=== PATIENT | male | born 1965 | race Caucasian/White ===

== ENCOUNTER 2022-01-02 20:38 | Emergency (ER) | payer OTHER ==
[~2022-01-02] VITALS: Ht 175.3 cm; Wt 72.6 kg
[2022-01-02 20:43] VITALS: BP_SYST 119
--- NOTE | 2022-01-02 20:45 | NUR ---
Pt BIBA from home with c/o of lightheadedness after being on inversion table upside down for 20 mins. Pt states he did not pass out, LOC. Per he was "in and out for 1 minute". Pt A&O X4, following commands. Pt denies CP, N/V.
--- NOTE | 2022-01-02 20:50 | NUR ---
Patient to ER bed 05 to gown for evaluation. Side rails up. Report given to Antony TOBAR.
--- NOTE | 2022-01-02 21:24 | NUR ---
BRIAN Bender at bedside examining patient.
[2022-01-02 22:00] LABS: BASOPHILS # (AUTO) 0.1 K/uL (0.0-0.2); BASOPHILS % (AUTO) 0.9 % (0.0-2.0); EOSINOPHILS # (AUTO) 0.8 K/uL (0.0-0.4); EOSINOPHILS % (AUTO) 7.3 % (0.0-4.0); HEMATOCRIT 41.6 % (36-54); LYMPHOCYTES # (AUTO) 1.7 K/uL (1.0-5.5); LYMPHOCYTES % (AUTO) 14.2 % (20.5-51.5); MEAN CORPUSCULAR VOLUME 87 fL (79.0-98.0); MONOCYTES # (AUTO) 0.8 K/uL (0.0-1.0); MONOCYTES % (AUTO) 7.2 % (1.7-9.3); NEUTROPHILS # (AUTO) 8.2 K/uL (1.8-7.7); NEUTROPHILS % (AUTO) 70.4 % (40.0-70.0); PLATELET COUNT (AUTO) 214 K/uL (130-430); RED BLOOD CELL COUNT(AUTO) 4.79 MIL/uL (4.2-6.2); RED CELL DISTRIBUTION WIDTH 12.9 % (9.0-15.0); WHITE BLOOD COUNT (AUTO) 11.7 K/uL (4.8-10.8)
[2022-01-02 22:50] LABS: ANION GAP 10 (5-15); CALCIUM 9.2 mg/dL (8.4-11.0); CHLORIDE 105 mmol/L (98-107); CREATININE 1.11 mg/dL (0.55-1.30); GLUCOSE 127 mg/dL (70-99); POTASSIUM 3.4 mmol/L (3.5-5.1); SODIUM SERUM 142 mmol/L (136-145); UREA NITROGEN, BLOOD 22 mg/dL (8-21)
[2022-01-02 22:52] LABS: GFR AFRICAN AMERICAN 89 mL/min (>90)
--- NOTE | 2022-01-03 00:26 | NUR ---
Pt resting comfortably in bed AOX4 VSS Able to make needs known NAD at this time Will continue to monitor
--- NOTE | 2022-01-03 02:38 | NUR ---
Pt DC per MD's order DC instructions and prescribtion given to pt Instructed pt to visit PMD within 2 days and to return to ED if S/S worsens Pt verbalized understandings AOX4 VSS Able to make needs known NAD at this time Pt exited ED in stable gait
[2022-01-03 02:39] VITALS: BP_SYST 113
== END 2022-01-03 02:36 | disposition home or self-care (01) ==
LOC: SED 20:38
DX: R55 Syncope and collapse (principal); I10 Essential (primary) hypertension; Z79.899 Other long term (current) drug therapy
CPT/HCPCS: 36415; 80048; 84484; 85025; 93005; 99284